=== PATIENT | male | born 1940 | race Caucasian/White ===

== ENCOUNTER 2018-11-06 08:04 | Outpatient (CLI) | payer MEDICARE ==
--- NOTE | 2018-11-06 10:38 | CT ---
CT chest noncontrast low dose screening HISTORY: Current smoker. Dyspnea. Screening. Nicotine dependence. FINDINGS: Lungs are hyperinflated with widespread peripheral interstitial thickening and bullae at th e apices. Occasional scattered calcified granulomata are present and consistent with healed granulomatous disease. Within the far medial aspect of the left upper lobe, a subpleural groundglass 0.4 cm nodule lies immediately deep to the anterior pleura. At the right anterior lung base within the right middle lobe, a noncalcified 0.2 cm solid nodule is present. Calcified pleura is apparent within the left hemithorax. There is an area of subpleural wedge-shaped peripheral parenchymal opacity abutting the area of greatest pleural calcification at the anterior lateral aspect of the left upper lobe. This is likely related to prior trauma or infection. No pleural fluid or pneumothorax. Lack of contrast limits evaluation of the soft tissues. Nonenlarged, nonspecific lymph nodes are scattered about the mediastinum. Calcification in the garland ry arteries and other arterial structures. IMPRESSION: Small noncalcified nodules within the right middle lobe and left upper lobe, as detailed above. Lung RADS category 2. Benign appearance. Continue annual low-dose screening. COPD. Evidence of old posttraumatic or postinfectious abnormality of the left upper lobe. Atherosclerosis.
--- NOTE | 2018-11-06 11:46 | CT ---
CT LUMBAR SPINE WITHOUT CONTRAST: HISTORY: Low back pain and leg pain x 3 months. COMPARISON: None. CORRELATION: Lumbar spine radiograph series 07/04/2018. FINDINGS: Five lumbar-type vertebral bodies. Lumbar spine vertebral body height is maintained. No fracture. No spondylolisthesis or spondylolysis. Visualized lung gold are clear. Limited evaluation of the solid organs due to technique. Grossly, n o solid organ abnormality. Atherosclerosis of a mildly prominent abdominal aorta, incompletely evaluated. 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 No retroperitoneal or paraspinal mass, ly mphadenopathy, or hematoma. Symmetric attenuation of the sternocleidomastoid muscles. Limited evaluation of the contents of the central spinal canal and neural foramen due to technique. T12-L1: No high-grade central canal stenosis or high-grade foraminal narrowing. L1-L2: Minimal generalized disk bulge, ligamentum flavum thickening, and facet hypertrophy. No sign ificant central canal stenosis or neural foraminal narrowing. L2-L3: Generalized disk bulge, ligamentum flavum thickening, and facet hypertrophy result in mild ce ntral canal stenosis. Neural foramina are patent. Minimal vacuum-disk phenomenon is noted. L3-L4: BROAD-BASED disk bulge, ligamentum flavum thickening, and facet hypertrophy result in moderat e central canal stenosis. Mild to moderate bilateral neural foraminal narrowing. L4-L5: Generalized disk bulge with a minimal central disk protrusion, ligamentum flavum thickening r esult in mild central canal stenosis. Mild to moderate right and mild left neural foraminal narrowin g. L5-S1: Minimal central disk protrusion without significant central canal stenosis. Mild bilateral f oraminal narrowing. IMPRESSION: Degenerative change of the lumbar spine as detailed above. There is no high-grade central canal sten osis or high-grade foraminal narrowing. The greatest degree of central canal stenosis appears to be at the L3-L4 level. POS: [facility]
== END 2018-11-06 08:05 | disposition home or self-care (01) ==
LOC: CT 08:04
PROVIDERS: ATTEND Family Medicine
DX: F17.210 Nicotine dependence, cigarettes, uncomplicated (principal); M54.5 Low back pain; J44.9 Chronic obstructive pulmonary disease, unspecified; I70.0 Atherosclerosis of aorta; I25.10 Atherosclerotic heart disease of native coronary artery without angina pectoris; R91.8 Other nonspecific abnormal finding of lung field; M47.816 Spondylosis without myelopathy or radiculopathy, lumbar region; M48.061 Spinal stenosis, lumbar region without neurogenic claudication
CPT/HCPCS: 72131; G0297

== ENCOUNTER 2020-01-15 12:44 | Inpatient (IN) | payer MEDICARE, OTHER ==
[2020-01-15 13:40] LABS: #Basophils 0.1 thou/uL (0.0-0.2); #Eosinphils 0.1 thou/uL (0.0-0.7); #Monocytes 1.2 thou/uL (0.11-0.59); #Neutrophils 6.9 thou/uL (1.40-6.50); %Basophils 1.1 % (0.0-1.0); %Eosinophils 0.9 % (0.0-10.0); %Lymphocytes 10.5 % (21.0-51.0); %Monocytes 12.7 % (0.0-10.0); %Neutrophils 74.8 % (42.0-75.0); Hemoglobin 12.6 g/dL (14.0-18.0); Mean Corpuscular HGB CONC 35.1 g/dL (32.0-36.0); Mean Corpuscular Hemoglobin 33.7 pg (27.0-31.0); Mean Corpuscular Volume 96.2 fL (78.0-98.0); Mean Platelet Volume 7.6 fL (7.4-10.4); Platelet Count 154 thou/uL (130-400); RBC Distribution Width 13.2 % (11.5-14.5); Red Blood Cell (RBC) Count 3.75 mill/uL (4.70-6.10); White Blood Cell (WBC) Count 9.2 thou/uL (4.8-10.8)
--- NOTE | 2020-01-15 13:49 | RAD ---
EXAM: CHEST ONE VIEW HISTORY: Altered mental status. Fall 3 days ago. Hypertensive. COMPARISON: 03/26/2019. FINDINGS: Dual lead right subclavian cardiac pacemaking device remains in place. Postsurgical changes related t o CABG are seen. Cardiac silhouette is magnified by projection. Pulmonary vasculature is within normal limits. Mild chronic interstitial lung changes are again seen. However, there is slightly grea ter interstitial and patchy densities now present at the right lung base as well as in the lingula which could be related to worsening chronic lung changes, but findings are worrisome for pneumonitis. Calcified pleural-based plaques along the left lateral lower chest are again seen. Vascular calcifications are again seen in the thoracic aorta. No other interval change. IMPRESSION: Chronic interstitial lung changes with superimposed areas of pneumonitis versus worsening chronic rancho g changes at the right lung base and in the region of the lingula. Follow-up chest x-ray is recommended.
--- NOTE | 2020-01-15 13:53 | CT ---
EXAM: CT brain without contrast HISTORY: Altered mental status COMPARISON: 10/23/2014 TECHNIQUE: Multiple contiguous axial images were obtained and a CT of the brain without contrast. FINDINGS: There are scattered hypodensities in the subcortical and periventricular white matter consi stent with small vessel ischemic disease. There is no evidence of hydrocephalus, intracranial hemorrhage, or extra-axial fluid collection. The calvarium and overlying soft tissues are unremarkable. The visualized paranasal sinuses and masto id air cells are well aerated. IMPRESSION: No evidence of acute intracranial abnormality
[2020-01-15 14:01] LABS: ALT (SGPT) 16 U/L (8-55); AST (SGOT) 22 U/L (5-34); Albumin 3.2 g/dL (3.4-4.8); Alkaline Phosphatase 91 U/L (40-110); Anion Gap 11 mmol/L (10-20); BUN (Urea Nitrogen) 45 mg/dL (8.4-25.7); Bilirubin, Total 0.7 mg/dL (0.2-1.2); Calc. Creatinine Clearance 0 mL/min (70-130); Carbon Dioxide 24 mmol/L (23-31); Chloride 106 mmol/L (98-107); Estimated GFR-MDRD 42; Globulin 2.9 g/dL (2.4-3.5); Glucose 106 mg/dL (83-110); Potassium 3.8 mmol/L (3.5-5.1); Protein, Total 6.1 g/dL (5.8-8.1); Sodium 137 mmol/L (136-145)
[2020-01-15 14:40] LABS: Bilirubin Negative (Negative); Blood, Urine Small (Negative); Clarity Clear (Clear); Glucose, Urine (Dipstick) Negative (Negative); Ketone, Urine Negative (Negative); Leukocyte Negative (Negative); Nitrite Negative (Negative); Protein, Urine (Dipstick) > or equal to 300 mg/dL (Neg-Trace); Specific Gravity, Urine 1.025 (1.005-1.030); Urobilinogen 0.2 mg/dL (Less than 2)
[2020-01-15 14:48] LABS: Bacteria/HPF None Seen HPF (None Seen); Renal Epithelial 0-3 HPF (None Seen); Squamous Epithelial 0-3 HPF (0-3); Transitional Epithelial 0-3 HPF (None Seen); WBC/HPF 0-3 HPF (0-3)
[2020-01-15] MEDS ORDERED: Azithromycin 500 MG VIAL ONE (15:02)
[2020-01-15] MEDS ORDERED: cefTRIAXone\\ROCEPHIN 1 GM VIAL ONE (15:02)
--- NOTE | 2020-01-15 15:33 | RAD ---
EXAM: 3 views of the right shoulder HISTORY: Shoulder pain COMPARISON: None FINDINGS: There is no evidence of acute fracture or dislocation. No degenerative changes are present. No soft tissue swelling is seen. A pacemaker generator is seen overlying the right thorax. IMPRESSION: No evidence of acute osseous abnormality.
[2020-01-15 15:35] LABS: CKMB 2.7 ng/mL (0-6.6)
--- NOTE | 2020-01-15 15:35 | RAD ---
Exam: Single view of the pelvis HISTORY: Altered mental status with pelvic pain COMPARISON: None FINDINGS: A single view the pelvis shows no evidence of acute fracture or dislocation. No degenerativ e changes seen in either hip. IMPRESSION: No evidence of acute osseous abnormality.
[2020-01-15] MEDS ORDERED: Morphine 4 MG/ML VIAL ONE ×2 (15:47→19:12)
[2020-01-15] MEDS ORDERED: hydrALAZINE 20 MG/ML VIAL ONE (15:48)
[2020-01-15] MEDS ORDERED: Aspirin Chewable 81 MG TAB ONE (15:48)
[2020-01-15] MEDS ORDERED: Ondansetron PF 4 MG/2 ML Vial IVP PRN (16:42)
[2020-01-15] MEDS ORDERED: Senokot S 8.6-50 MG TAB PO PRN (16:42)
[2020-01-15] MEDS ORDERED: Ondansetron ODT 4 MG TAB PO PRN (16:42)
[2020-01-15] MEDS ORDERED: Acetaminophen 325 MG TAB PO PRN (16:42)
[2020-01-15 19:07] LABS: CRP (Inflammatory) 7.59 mg/dL (= or < 0.5); Magnesium 1.8 mg/dL (1.6-2.6)
[2020-01-15 19:12] LABS: Troponin I 0.095 ng/mL (< 0.028)
[2020-01-15 19:27] LABS: Ferritin 167.26 ng/mL (22-322)
[2020-01-15 19:32] LABS: Thyroid Stimulating Hormone 1.7154 uIU/mL (0.35-4.94)
[2020-01-15] MEDS ORDERED: Acetaminophen 325 MG TAB ONE (21:06)
[2020-01-15] MEDS ORDERED: Famotidine/PF 20 mg/2ml Vial ONE (21:06)
[2020-01-15] MEDS ORDERED: Ondansetron PF 4 MG/2 ML Vial ONE (21:06)
[2020-01-15] MEDS ORDERED: Cefepime 1 GM VIAL ONE (21:16)
[2020-01-15] MEDS ORDERED: Acetaminophen 325 MG Suppository ONE ×2 (21:39→21:44)
[2020-01-15] MEDS ORDERED: Lorazepam 2 MG/ML VIAL ONE (22:03)
[2020-01-15 22:34] LABS: Troponin I 0.105 ng/mL (< 0.028)
--- NOTE | 2020-01-16 01:59 | HP ---
PRIMARY CARE PHYSICIAN: Out of [facility], [place]. CHIEF COMPLAINT: Altered mental status. HISTORY OF PRESENT ILLNESS: The HPI was taken from Jaclyn, who is an RN in the [facility] and from the ER record. The patient is a 79-year-old male with a past medical history significant for Alzheimer, CAD, frequent falls, CKD, and hypertension, who presents to the ER for the above complaint. According to [facility] staff, the patient was slightly altered this morning. Nurse reported that the patient was generally weak, had decreased oral intake and was mumbling more than usual. She also reports that the patient had a UA performed last night, which was negative for any acute urinary tract infection. Denies any fever, vomiting or diarrhea. Apparently, the patient also fell three days ago at the [facility]. He did suffer a laceration to his face that required several Steri-Strips. Because of the patient's altered mental status, the nursing staff called EMS. EMS arrived and the patient was found to be hypertensive with a blood pressure of 190/120. He had a blood glucose of 107 and was 95% on room air. He had no focal motor deficits. He was transferred to the ER in [place]. In [place], the patient was found to be afebrile with an elevated blood pressure. He was tachycardic, HR 90s. He was tachypneic with respirations of 25. He was 96% on room air. EKG was a-paced with a first-degree AV block. No ST elevations. Initial troponin 0.090 , CK-MB was 2.7. BNP was 227. He had a lactic acid of 0.8. White blood cell count of 9.2. His BUN was 45 and his creatinine was 1.59. CT of the brain was negative for any acute process. Chest x-ray was positive for some right lower lobe pneumonitis or possible worsening chronic changes of the lungs. X-ray of the pelvis and x-ray of the right shoulder were negative for any acute process and his UA was unremarkable. The patient was given azithromycin and Rocephin IV piggyback. Full-dose aspirin and hydralazine IV push. PAST MEDICAL HISTORY: 1. Alzheimer dementia. 2. Coronary artery disease. 3. Frequent falls. 4. Glaucoma. 5. Macular degeneration. 6. Chronic kidney disease 3. 7. Hypertension. PAST SURGICAL HISTORY: Pacemaker. SOCIAL HISTORY: The patient is a [facility] resident in [place]. He has no history of smoking, alcohol intake, or illicit drug use. He typically ambulates via walker or transfer to a wheelchair. FAMILY HISTORY: 1. Noncontributory to this case. 2. No known drug allergies. HOME MEDICATIONS: 1. Aspirin 81 mg p.o. daily. 2. Depakote sprinkles 125 mg p.o. b.i.d. 3. Latanoprost drops, one drop in each eye daily. 4. Meclizine 12.5 mg p.o. b.i.d. 5. Centrum Silver 1 tablet p.o. daily. REVIEW OF SYSTEMS: All other review of systems are negative unless otherwise stated in the HPI. PHYSICAL EXAMINATION: VITAL SIGNS: Temperature 98.5, blood pressure 156/113, heart rate 98, respirations are 25, and SpO2 96% on room air. CONSTITUTIONAL: The patient's blood pressure is hypertensive. Respiratory rate increased, normal pulse ox. The patient appears comfortable, slightly confused, localizes to painful stimulus. HEENT: Head; the patient has a small laceration to his head from previous fall. Eyes; pupils are equal, round, and reactive to light. Extraocular muscles intact. Sclerae nonicteric. ENT; nares are patent bilaterally. TMs are intact bilaterally. Oropharynx is clear. Uvula midline. Dry mucous membranes. No oral lesions. NECK: Neck is supple. Trachea is midline. No cervical spinal tenderness. Full range of motion. No cervical lymphadenopathy. No JVD. RESPIRATORY: Respirations are even and unlabored. Breath sounds are clear. No wheezes, rhonchi, or rales. CARDIOVASCULAR: S1 and S2 appreciated. No murmurs, rubs, or gallops. ABDOMEN: Soft and nontender. Active bowel sounds. No rebound. No guarding. No rigidity. Negative Rovsing sign. Negative Hidalgo sign. No abdominal bruit auscultated. BACK: Full range of motion. No central spinous tenderness. No CVA tenderness. EXTREMITIES: Upper extremities; decreased range of motion on the right. Sensation intact. Strength intact. Palpable radial pulses. Lower extremities; decreased range of motion. Sensation intact. Strength normal. Palpable pedal pulses. No swelling. NEUROLOGIC: The patient is alert and oriented to person and place, which is baseline per his [facility]. He is able to carry conversation and follows commands. There are no focal deficits. PSYCHIATRIC: Alert and oriented to person and place. No suicidal or homicidal ideation. LABS AND DIAGNOSTICS: Na 137, K 3.8, BUN 45, Creatinine 1.59, glucose 106, WBC 9.2, Hgb 12.6, Hct. 36.1, Plat 154, LA 0.8, Trop 0.090, CKMB 2.7, BNP 227, CT brain negative for any acute process, XR of pelvis and right shoulder negative for any acute fracture, UA unremarkable. IMPRESSION AND PLAN: 1. Pneumonia. We will admit the patient to the medical floor, inpatient status. Expected length of stay, greater than two midnights. WBCs were 9.2. Lactic acid 0.8. Chest x-ray showed chronic interstitial lung changes with superimposed areas of pneumonitis versus worsening chronic lung changes at the right lung base and in the region of the lingula. A followup x-ray is recommended. The patient's vital signs upon examination, slightly tachycardic and tachypneic and maintaining 96% on room air. We will continue azithromycin. We will add cefepime for pseudomonal coverage secondary to [facility] resident. Blood cultures and urine cultures are pending. COVID testing is pending as well. Supplemental support is needed. 2. Altered mental status, likely secondary to #1. The patient did have a recent fall. CT of brain was negative. UA was unremarkable. No focal motor deficits. 3. Suspected COVID. The patient is a [facility] resident. We will place on droplet precautions. We will order acute phase reactants. We will await COVID results. 4. Acute kidney injury, appears mild. Patient presented with a BUN of 45 and a creatinine of 1.59. He does have chronic kidney disease stage 3, which appears to be stable at this time. intermediate did report decreased oral intake. BNP was 227. We will gently IV fluid and resuscitate with 50 mils per hour of normal saline and we will recheck levels in the a.m. 5. Coronary artery disease. The patient does have a permanent pacemaker in place. EKG did show Sinus Arrythmia with first-degree AV block. Initial troponin was 0.090 and CK-MB was 2.7. We will trend troponins and will interrogate pacemaker. 6. Chronic kidney disease 3, stable. 7. Glaucoma. We will restart the patient's home medications when reconciled by nursing. 8. Frequent falls. We will place the patient on fall precautions. We will order PT for evaluation. 9. Hypertension. The patient takes no medications for high blood pressure. Per the [facility] staff, he did present to EMS with a blood pressure of 190/120. In the ER, he presented with 156/113, and was given one dose of hydralazine. We will continue to monitor BP and we will add p.r.n. antihypertensive medications as needed. 10. Consult Physical Therapy. 11. SCDs for deep venous thrombosis prophylaxis. No pharmacoprophylaxis secondary to frequent falls. 12. Pepcid for GI prophylaxis. 13. The patient is a DNR, confirmed his status with GULSHAN Anaya at the [facility]. 14. Discussed the case with Dr. Alonso. Job ID: [id number] MTDD
[2020-01-16] MEDS: Sodium Chloride 0.9% 1,000 ML IV SCH ×2 (03:42→16:55)
[2020-01-16] MEDS: Famotidine/PF 20 mg/2ml Vial SLOW IVP SCH ×2 (03:43→21:40)
[2020-01-16] MEDS: Cefepime 1 GM in Sodium Chloride 0.9% 100 ML IVPB SCH ×3 (03:43→21:39)
[2020-01-16] MEDS: Famotidine 20 MG TAB PO SCH ×2 (03:43→21:52)
[2020-01-16 05:13] LABS: #Basophils 0.1 thou/uL (0.0-0.2); #Eosinphils 0.1 thou/uL (0.0-0.7); #Lymphocytes 1.1 thou/uL (1.20-3.40); #Monocytes 1.2 thou/uL (0.11-0.59); #Neutrophils 7.1 thou/uL (1.40-6.50); %Basophils 0.8 % (0.0-1.0); %Eosinophils 0.6 % (0.0-10.0); %Lymphocytes 11.7 % (21.0-51.0); %Monocytes 12.4 % (0.0-10.0); %Neutrophils 74.5 % (42.0-75.0); Hemoglobin 11.8 g/dL (14.0-18.0); Mean Corpuscular HGB CONC 32.7 g/dL (32.0-36.0); Mean Corpuscular Volume 97.7 fL (78.0-98.0); Mean Platelet Volume 7.8 fL (7.4-10.4); Platelet Count 157 thou/uL (130-400); RBC Distribution Width 13.2 % (11.5-14.5); White Blood Cell (WBC) Count 9.6 thou/uL (4.8-10.8)
[2020-01-16] MEDS: Labetalol HCl 100 MG/20 ML VIAL SLOW IVP PRN ×2 (05:25→13:36)
[2020-01-16 05:34] LABS: Anion Gap 12 mmol/L (10-20); BUN (Urea Nitrogen) 44 mg/dL (8.4-25.7); Calc. Creatinine Clearance 30 mL/min (70-130); Calcium 9.8 mg/dL (7.8-10.44); Carbon Dioxide 23 mmol/L (23-31); Chloride 107 mmol/L (98-107); Estimated GFR-MDRD 39; Glucose 82 mg/dL (83-110); Potassium 3.9 mmol/L (3.5-5.1); Sodium 138 mmol/L (136-145)
[2020-01-16] MEDS: Acetaminophen 650 MG Suppository PR PRN (05:48)
[2020-01-16 07:04] VITALS: BMI 18.6
[2020-01-16] MEDS: Aspirin 81 mg Enteric Coated Tablet PO SCH (10:39)
[2020-01-16 12:26] LABS: SARS-CoV-2 MS2 Positive; SARS-CoV-2 N Gene Negative; SARS-CoV-2 S Gene Negative; SARS-CoV-2 orf1ab Negative
--- NOTE | 2020-01-16 12:57 | PDOC.HOSPP ---
- Subjective Encounter Date: 01/16/20 Encounter Time: 10:20 Subjective: pt seen this am, he is not oriented to make any conversation, clothes are disarraigned. sats are good. talk to RN. - Objective Vital Signs & Weight: Vital Signs (12 hours) Temp Pulse Resp BP BP BP Pulse Ox 01/16/20 07:40 99.5 F 115 H 20 174/85 H 100 01/16/20 05:25 86 187/79 H 01/16/20 04:48 99.4 F 86 22 H 187/79 H 96 01/16/20 01:03 99.6 F 124 H 20 149/79 H 99 Weight Admit Weight 133 lb 4 oz Weight 133 lb 4 oz Result Diagrams: 01/16/20 04:57 01/16/20 04:57 Hospitalist ROS - Medication Medications: Active Medications Generic Name Dose Route Start Last Admin Trade Name Freq PRN Reason Stop Dose Admin Acetaminophen 650 mg 01/16/20 05:43 01/16/20 05:48 Tylenol ME 650 mg Q4H PRN Administration Fever/Mild Pain Aspirin 81 mg 01/16/20 09:00 01/16/20 10:39 Ecotrin PO Not Given DAILY DARIEN Famotidine 20 mg 01/15/20 21:00 01/16/20 03:43 Pepcid SLOW IVP Not Given QPM DARIEN Famotidine 20 mg 01/15/20 21:00 01/16/20 03:43 Pepcid PO Not Given QPM DARIEN Sodium Chloride 1,000 mls @ 50 mls/hr 01/15/20 16:45 01/16/20 03:42 Normal Saline 0.9% IV Not Given .Q20H DARIEN Cefepime HCl 1 gm/ Sodium 100 mls @ 200 mls/hr 01/15/20 21:00 01/16/20 07:32 Chloride IVPB 100 mls Q12HR DARIEN Administration Labetalol HCl 10 mg 01/15/20 16:52 01/16/20 05:25 Normodyne SLOW IVP 10 mg Q4H PRN Administration Systolic BP > 180 - Exam General Appearance: ill appearing Eye: PERRL ENT: normocephalic atraumatic Neck: supple Heart: RRR Respiratory: CTAB Neurological: no focal deficits Psychiatric: not oriented Hosp A/P - Plan Fall -- cT head negative Covid -- neg. LLL PNA vs.. atelectasis -- afebrile, no high wbcs.--favour atlecatsis -- off CTX and cw zithro to cover for aspiration in AMS pt Alzhimers dementia -supportive care DNAR
[2020-01-16] MEDS ORDERED: cefTRIAXone\\ROCEPHIN 1 GM in Sodium Chloride 0.9% 100 ML IVPB SCH (16:00)
[2020-01-16] MEDS ORDERED: Lorazepam 2 MG/ML VIAL SLOW IVP SCH (17:00)
[2020-01-16] MEDS: hydrALAZINE 20 MG/ML VIAL SLOW IVP SCH ×2 (17:07→21:40)
--- NOTE | 2020-01-16 17:44 | ULT ---
US Renal Bilateral STANDARD History: Acute kidney injury Comparison: None. Findings: Real-time grayscale and color evaluation of the kidneys and urinary bladder was performed. The urinary bladder is not well interrogated. Right kidney measures 8.8 x 4.7 x 4.2 cm and the left k idney measures 7.8 x 4.7 x 3.5 cm. No renal mass, hydronephrosis or abnormal calcifications. Impression: No evidence for obstructive uropathy.
[2020-01-16] MEDS ORDERED: Prevnar 13-Val Conj/PF 0.5 ML SYRINGE IM ONE (21:00)
[2020-01-16] MEDS: Azithromycin 500 MG in Sodium Chloride 0.9% 250 ML 250 ML IVPB SCH (21:39)
[2020-01-17] MEDS: hydrALAZINE 20 MG/ML VIAL SLOW IVP SCH ×3 (06:05→22:35)
[2020-01-17 06:08] LABS: Troponin I 0.478 ng/mL (< 0.028)
[2020-01-17] MEDS: Cefepime 1 GM in Sodium Chloride 0.9% 100 ML IVPB SCH (09:41)
[2020-01-17] MEDS: Labetalol HCl 100 MG/20 ML VIAL SLOW IVP PRN (09:42)
[2020-01-17] MEDS: Aspirin 81 mg Enteric Coated Tablet PO SCH (09:42)
--- NOTE | 2020-01-17 13:31 | PDOC.HOSPP ---
- Subjective Encounter Date: 01/17/20 Encounter Time: 11:20 Subjective: pt seen this morning, Physical. -therapy nearby. pt barely oriented. BP quite high. NPO w.. aspiration risk - Objective Vital Signs & Weight: Vital Signs (12 hours) Temp Pulse Pulse Resp BP BP BP 01/17/20 11:48 97.8 F 108 H 20 162/101 H 01/17/20 10:38 77 209/86 H 01/17/20 07:50 98.4 F 117 H 20 200/91 H 01/17/20 06:05 102 H 01/17/20 04:00 172/68 H 01/17/20 03:30 98.9 F 102 H 20 Pulse Ox 01/17/20 11:48 93 L 01/17/20 10:38 01/17/20 07:50 94 L 01/17/20 06:05 01/17/20 04:00 01/17/20 03:30 92 L Weight Admit Weight 133 lb 4 oz Weight 133 lb 4 oz Result Diagrams: 01/16/20 04:57 01/16/20 04:57 Hospitalist ROS - Medication Medications: Active Medications Generic Name Dose Route Start Last Admin Trade Name Freq PRN Reason Stop Dose Admin Acetaminophen 650 mg 01/16/20 05:43 01/16/20 05:48 Tylenol NV 650 mg Q4H PRN Administration Fever/Mild Pain Aspirin 81 mg 01/16/20 09:00 01/17/20 09:42 Ecotrin PO Not Given DAILY DARIEN Famotidine 20 mg 01/15/20 21:00 01/16/20 21:40 Pepcid SLOW IVP 20 mg QPM DARIEN Administration Famotidine 20 mg 01/15/20 21:00 01/16/20 21:52 Pepcid PO Not Given QPM DARIEN Hydralazine HCl 20 mg 01/16/20 14:00 01/17/20 06:05 Apresoline SLOW IVP 20 mg Q8HR DARIEN Administration Sodium Chloride 1,000 mls @ 50 mls/hr 01/15/20 16:45 01/16/20 16:55 Normal Saline 0.9% IV 1,000 mls .Q20H DARIEN Administration Azithromycin 500 mg/ Sodium 250 mls @ 250 mls/hr 01/16/20 21:00 01/16/20 21: 39 Chloride IVPB 250 mls 2100 DARIEN Administration Cefepime HCl 1 gm/ Sodium 100 mls @ 200 mls/hr 01/15/20 21:00 01/17/20 09:41 Chloride IVPB 100 mls Q12HR DARIEN Administration Labetalol HCl 10 mg 01/15/20 16:52 01/17/20 09:42 Normodyne SLOW IVP 10 mg Q4H PRN Administration Systolic BP > 180 - Exam General Appearance: ill appearing ENT: normocephalic atraumatic Neck: supple Heart: RRR Respiratory: CTAB, normal chest expansion Gastrointestinal: soft, normal bowel sounds Neurological: no focal deficits Psychiatric: not oriented Hosp A/P - Plan Fall -- cT head negative Covid -- neg. LLL PNA vs.. atelectasis -- afebrile, no high wbcs.--favour atlecatsis -- off CTX and cw zithro to cover for aspiration in AMS pt Alzhimers dementia -supportive care dysphagia - pt is high risk for aspiration -- i dont think he would be more active to avoid this risk -we have to define goals of care, so he can resume 'pleasure food, taking aspirn...risk] - have to talk to family -- PEG also not recommended in my opinion -will request palliative to help us with coordinating w.. family -- so pt can start pleasure food, whenever he is alert and awake -maintenance fluid is running -- reduce the rate as BP high HTN urgency - pt NPO so - scheduled hydralazine IV. DNAR
[2020-01-17] MEDS: Sodium Chloride 0.9% 1,000 ML IV SCH (17:03)
[2020-01-17] MEDS ORDERED: Lorazepam 2 MG/ML VIAL SLOW IVP SCH (22:00)
[2020-01-17] MEDS: Azithromycin 500 MG in Sodium Chloride 0.9% 250 ML 250 ML IVPB SCH (22:34)
[2020-01-18 05:18] LABS: Anion Gap 13 mmol/L (10-20); BUN (Urea Nitrogen) 56 mg/dL (8.4-25.7); Calc. Creatinine Clearance 30 mL/min (70-130); Calcium 10.5 mg/dL (7.8-10.44); Carbon Dioxide 24 mmol/L (23-31); Chloride 111 mmol/L (98-107); Estimated GFR-MDRD 39; Glucose 102 mg/dL (83-110); Potassium 3.6 mmol/L (3.5-5.1); Sodium 144 mmol/L (136-145)
[2020-01-18] MEDS: hydrALAZINE 20 MG/ML VIAL SLOW IVP SCH ×4 (06:37→20:22)
--- NOTE | 2020-01-18 11:50 | PDOC.HOSPP ---
- Subjective Encounter Date: 01/18/20 Encounter Time: 09:40 Subjective: pt is getting cleaned up; no skin ulcers. talk to the dtr y'day over the phone , agreeable for hospice. - Objective Vital Signs & Weight: Vital Signs (12 hours) Temp Pulse Resp BP BP Pulse Ox 01/18/20 07:50 98 F 106 H 24 H 155/105 H 92 L 01/18/20 06:37 108 H 198/92 H 01/18/20 02:53 95 Weight Admit Weight 133 lb 4 oz Weight 133 lb 4 oz Result Diagrams: 01/16/20 04:57 01/18/20 04:40 Hospitalist ROS - Medication Medications: Active Medications Generic Name Dose Route Start Last Admin Trade Name Freq PRN Reason Stop Dose Admin Acetaminophen 650 mg 01/16/20 05:43 01/16/20 05:48 Tylenol ME 650 mg Q4H PRN Administration Fever/Mild Pain Hydralazine HCl 20 mg 01/18/20 09:00 01/18/20 09:42 Apresoline SLOW IVP 20 mg 0300,0900,1500,2100 DARIEN Administration Azithromycin 500 mg/ Sodium 250 mls @ 250 mls/hr 01/16/20 21:00 01/17/20 22: 34 Chloride IVPB 250 mls 2100 DARIEN Administration Labetalol HCl 10 mg 01/15/20 16:52 01/17/20 09:42 Normodyne SLOW IVP 10 mg Q4H PRN Administration Systolic BP > 180 - Exam General Appearance: NAD, awake alert, ill appearing Eye: PERRL ENT: normocephalic atraumatic Neck: supple Heart: RRR Respiratory: CTAB Gastrointestinal: soft, normal bowel sounds Neurological: no focal deficits Psychiatric: not oriented Hosp A/P - Plan Fall -- CT head negative Covid -- neg. LLL PNA vs.. atelectasis -- afebrile, no high wbcs.--favour atlecatsis -- off CTX and cw zithro to cover for aspiration in AMS pt Alzhimers dementia -supportive care Dysphagia - pt is high risk for aspiration -- i dont think he would be more active to avoid this risk -we have to define goals of care, so he can resume 'pleasure food, taking aspirn...risk] - have to talk to family -- PEG also not recommended in my opinion -will request palliative to help us with coordinating w.. family -- so pt can start pleasure food, whenever he is alert and awake -maintenance fluid is running -- reduce the rate as BP high HTN urgency - pt NPO so - scheduled hydralazine IV. No labs and wean off most meds - will dc abx and adopt comfort care meds, once hospice on board. -ativan prn for now. talk to dtr farooq at [phone] on . hospice consult placed -- pleasure food. --pureed diet w.. nectar. DNAR
[2020-01-18] MEDS ORDERED: KCL IV SCH (12:00)
[2020-01-18] MEDS ORDERED: NS IV SCH (12:00)
[2020-01-18] MEDS ORDERED: NS 0.9% w/ 40 MEQ KCL 1,000 ML IV SCH (12:15)
[2020-01-18] MEDS ORDERED: Nitroglycerin 0.4 MG TAB (25 Tab Bottle) SL PRN (12:56)
[2020-01-18] MEDS: Morphine 2 MG/ML VIAL SLOW IVP PRN ×2 (13:39→20:22)
[2020-01-18] MEDS: Azithromycin 500 MG in Sodium Chloride 0.9% 250 ML 250 ML IVPB SCH (20:23)
[2020-01-18] MEDS: Labetalol HCl 100 MG/20 ML VIAL SLOW IVP PRN (22:07)
[2020-01-18] MEDS ORDERED: Lorazepam 2 MG/ML VIAL SLOW IVP PRN (23:19)
[2020-01-18] MEDS: hydrALAZINE 20 MG/ML VIAL SLOW IVP PRN (23:54)
[2020-01-19] MEDS: Acetaminophen 650 MG Suppository PR PRN (00:12)
[2020-01-19] MEDS: Morphine 2 MG/ML VIAL SLOW IVP PRN (03:17)
[2020-01-19] MEDS: hydrALAZINE 20 MG/ML VIAL SLOW IVP SCH ×4 (03:18→21:22)
[2020-01-19] MEDS: Labetalol HCl 100 MG/20 ML VIAL SLOW IVP PRN ×2 (04:36→12:45)
[2020-01-19] MEDS ORDERED: Morphine 4 MG/ML VIAL SLOW IVP PRN (05:11)
[2020-01-19] MEDS: Morphine 4 MG/ML VIAL SLOW IVP PRN ×3 (05:46→23:03)
[2020-01-19] MEDS: hydrALAZINE 20 MG/ML VIAL SLOW IVP PRN (05:47)
--- NOTE | 2020-01-19 11:01 | PDOC.HOSPP ---
- Subjective Encounter Date: 01/19/20 Encounter Time: 10:45 Subjective: f/u for suspected RLL PNA and potential aspiration on current Zithromax. Awaiting Palliative care consult and likely transition to hospice care. - Objective Vital Signs & Weight: Vital Signs (12 hours) Temp Pulse Resp BP BP Pulse Ox 01/19/20 09:08 104 H 200/90 H 01/19/20 07:25 97.9 F 98 18 95 01/19/20 06:10 170/88 H 01/19/20 05:47 92 210/90 H 01/19/20 04:36 106 H 190/100 H 01/19/20 03:50 94 L 01/19/20 03:18 104 H 210/100 H 01/19/20 03:08 97 F L 24 H 210/100 H 98 01/19/20 00:40 131/74 01/19/20 00:02 99.7 F H 104 H 26 H 211/104 H 97 01/18/20 23:10 205/110 H Weight Admit Weight 133 lb 4 oz Weight 133 lb 4 oz I&O: 01/18/20 01/19/20 01/20/20 06:59 06:59 06:59 Intake Total 1000 Balance 1000 Result Diagrams: 01/16/20 04:57 01/20/20 04:28 Additional Labs: Microbiology 01/15/20 14:07 Urine Straight Catheter Urine Culture - Final NO GROWTH AT 48 HOURS 01/15/20 14:01 Venous blood - Right Hand Blood Culture - Preliminary NO GROWTH AT 48 HOURS 01/15/20 14:01 Venous blood - Left Arm Blood Culture - Preliminary NO GROWTH AT 48 HOURS Laboratory Tests 01/15/20 01/15/20 01/15/20 13:29 13:32 13:32 Creatinine 1.59 H Ferritin Troponin I 0.090 H B-Natriuretic Peptide 227.4 H TSH 3rd Generation COVID-19 PCR 01/15/20 01/15/20 01/15/20 15:55 18:36 18:36 Creatinine Ferritin 167.26 Troponin I 0.095 H B-Natriuretic Peptide TSH 3rd Generation 1.7154 COVID-19 PCR Not Detected 01/15/20 01/16/20 01/17/20 22:00 04:57 05:15 Creatinine 1.69 H Ferritin Troponin I 0.105 H 0.478 H* B-Natriuretic Peptide TSH 3rd Generation COVID-19 PCR EKG Reviewed by me: Yes (Tele - SR with PAC's) Hospitalist ROS - Medication Medications: Active Medications Generic Name Dose Route Start Last Admin Trade Name Freq PRN Reason Stop Dose Admin Acetaminophen 650 mg 01/16/20 05:43 01/19/20 00:12 Tylenol IN 650 mg Q4H PRN Administration Fever/Mild Pain Hydralazine HCl 10 mg 01/15/20 16:52 01/19/20 05:47 Apresoline SLOW IVP 10 mg Q4H PRN Administration SBP > 180 or DBP > 105 Hydralazine HCl 20 mg 01/18/20 09:00 01/19/20 09:08 Apresoline SLOW IVP 20 mg 0300,0900,1500,2100 DARIEN Administration Azithromycin 500 mg/ Sodium 250 mls @ 250 mls/hr 01/16/20 21:00 01/18/20 20: 23 Chloride IVPB 250 mls 2100 DARIEN Administration Labetalol HCl 10 mg 01/15/20 16:52 01/19/20 04:36 Normodyne SLOW IVP 10 mg Q4H PRN Administration Systolic BP > 180 Lorazepam 0.5 mg 01/18/20 23:19 01/18/20 23:54 Ativan SLOW IVP 0.5 mg Q6H PRN Administration Anxiety/Agitation Morphine Sulfate 4 mg 01/19/20 05:12 01/19/20 05:46 Morphine SLOW IVP 4 mg Q4H PRN Administration Chest Pain - Exam General Appearance: ill appearing General - other findings: agitated Eye: PERRL, anicteric sclera ENT: normocephalic atraumatic, no oropharyngeal lesions, dry oral mucosa Neck: supple, symmetric, no JVD, no thyromegaly, no lymphadenopathy Heart: RRR, no gallops, no rubs, normal peripheral pulses Heart - other findings: S1, S2 Respiratory: tachypneic Respiratory - other findings: scattered coarse sounds Gastrointestinal: soft, non-tender, non-distended, normal bowel sounds, no palpable masses Extremities: no cyanosis Skin: normal turgor Neurological - other findings: not following commands, spontaneous limb movement Musculoskeletal: generalized weakness, diffuse muscle atrophy Psychiatric: not oriented, somnolent, lethargic Hosp A/P (1) Bacterial pneumonia Code(s): J15.9 - UNSPECIFIED BACTERIAL PNEUMONIA Status: Acute Plan: Suspected Gm + cocci, continue Zithromax, ? aspiration component given dysphagia , supportive mgmt (2) Alzheimer's dementia Code(s): G30.9 - ALZHEIMER'S DISEASE, UNSPECIFIED; F02.80 - DEMENTIA IN OTH DISEASES CLASSD ELSWHR W/O BEHAVRL DISTURB Status: Chronic Plan: Advanced dementia, likely end-stage process (3) CKD (chronic kidney disease), stage III Code(s): N18.3 - CHRONIC KIDNEY DISEASE, STAGE 3 (MODERATE) Status: Chronic Plan: Avoid nephrotoxic meds and limit contrast exposure, D5 1/2 NS @ 50ml/h (4) Dysphagia Code(s): R13.10 - DYSPHAGIA, UNSPECIFIED Status: Chronic Qualifiers: Dysphagia type: oropharyngeal phase Qualified Code(s): R13.12 - Dysphagia, oropharyngeal phase Plan: [employer] following, ice chips and crushed meds, likely end-stage process, no recommendation for PEG (5) HTN (hypertension) Code(s): I10 - ESSENTIAL (PRIMARY) HYPERTENSION Status: Chronic Qualifiers: Hypertension type: essential hypertension Qualified Code(s): I10 - Essential (primary) hypertension Plan: Labile, likely due to agitation and dementia, add Clonidine patch, PRN Hydralazine/Labetalol (6) Dehydration Code(s): E86.0 - DEHYDRATION Status: Acute Plan: Add D5 1/2 NS @ 100ml/h - Plan continue antibiotics, PT/OT, healthcare social worker, speech therapy, DVT proph w/SCDs Consults: Palliative Care Continue supportive mgmt Add D5 1/2 NS @ 100ml/h Palliative/Hospice consult pending Continue Zithromax Continue Ativan/Morphine sulfate for agitation Code Status: DNAR AM lab: BMP
[2020-01-19] MEDS ORDERED: cloNIDine 0.2mg/24 Hour PATCH TD SCH (12:00)
[2020-01-19] MEDS: Dextrose 5 %-0.45 % NaCl 1,000 ML IV SCH (12:25)
[2020-01-19] MEDS ORDERED: Sodium Chloride 0.9% 500 ML IVPB SCH (18:45)
[2020-01-19] MEDS ORDERED: Diltiazem 125 MG in Sodium Chloride 0.9% 100 ML IVPB SCH ×2 (20:15→22:30)
[2020-01-19] MEDS: Azithromycin 500 MG in Sodium Chloride 0.9% 250 ML 250 ML IVPB SCH (21:12)
[2020-01-20] MEDS: Dextrose 5 %-0.45 % NaCl 1,000 ML IV SCH ×2 (04:42→04:43)
[2020-01-20] MEDS: hydrALAZINE 20 MG/ML VIAL SLOW IVP SCH ×2 (04:43→10:46)
[2020-01-20 05:04] LABS: Anion Gap 12 mmol/L (10-20); BUN (Urea Nitrogen) 62 mg/dL (8.4-25.7); Calc. Creatinine Clearance 29 mL/min (70-130); Calcium 9.8 mg/dL (7.8-10.44); Carbon Dioxide 21 mmol/L (23-31); Chloride 119 mmol/L (98-107); Estimated GFR-MDRD 38; Glucose 167 mg/dL (83-110); Potassium 3.5 mmol/L (3.5-5.1); Sodium 148 mmol/L (136-145)
[2020-01-20] MEDS ORDERED: Dextrose 5% in Water 1,000 ML IV SCH (07:45)
--- NOTE | 2020-01-20 10:40 | PDOC.HOSPP ---
- Subjective Encounter Date: 01/20/20 Encounter Time: 10:35 Subjective: f/u for RLL PNA with aspiration on current Zithromax. Awaiting hospice decision with family. Developed A-fib/flutter RVR last pm and started on Cardizem gtt. - Objective Vital Signs & Weight: Vital Signs (12 hours) Temp Pulse Resp BP BP Pulse Ox 01/20/20 07:32 97.7 F 100 20 164/92 H 95 01/20/20 04:43 92 01/20/20 03:10 98.9 F 92 18 174/81 H 94 L 01/20/20 00:11 94 L 01/19/20 23:26 99.1 F 133 H 16 170/92 H 94 L Weight Admit Weight 133 lb 4 oz Weight 133 lb 4 oz I&O: 01/19/20 01/20/20 01/21/20 06:59 06:59 06:59 Intake Total 1000 Balance 1000 Result Diagrams: 01/16/20 04:57 01/20/20 04:28 Additional Labs: Microbiology 01/15/20 14:07 Urine Straight Catheter Urine Culture - Final NO GROWTH AT 48 HOURS 01/15/20 14:01 Venous blood - Right Hand Blood Culture - Preliminary NO GROWTH AT 48 HOURS 01/15/20 14:01 Venous blood - Left Arm Blood Culture - Preliminary NO GROWTH AT 48 HOURS Laboratory Tests 01/15/20 01/15/20 01/15/20 13:29 13:32 13:32 Sodium Chloride BUN Creatinine 1.59 H Calcium Ferritin Troponin I 0.090 H B-Natriuretic Peptide 227.4 H TSH 3rd Generation COVID-19 PCR 01/15/20 01/15/20 01/15/20 15:55 18:36 18:36 Sodium Chloride BUN Creatinine Calcium Ferritin 167.26 Troponin I 0.095 H B-Natriuretic Peptide TSH 3rd Generation 1.7154 COVID-19 PCR Not Detected 01/15/20 01/16/20 01/17/20 22:00 04:57 05:15 Sodium Chloride BUN Creatinine 1.69 H Calcium Ferritin Troponin I 0.105 H 0.478 H* B-Natriuretic Peptide TSH 3rd Generation COVID-19 PCR 01/18/20 04:40 Sodium 144 Chloride 111 H BUN 56 H Creatinine 1.69 H Calcium 10.5 H Ferritin Troponin I B-Natriuretic Peptide TSH 3rd Generation COVID-19 PCR EKG Reviewed by me: Yes (Tele - V-pacing, A-fib in low 100's) Hospitalist ROS - Medication Medications: Active Medications Generic Name Dose Route Start Last Admin Trade Name Freq PRN Reason Stop Dose Admin Acetaminophen 650 mg 01/16/20 05:43 01/19/20 00:12 Tylenol WI 650 mg Q4H PRN Administration Fever/Mild Pain Clonidine 0.2 mg 01/19/20 12:00 01/19/20 12:26 [id number] TD 0.2 mg Q7D DARIEN Administration Hydralazine HCl 10 mg 01/15/20 16:52 01/19/20 05:47 Apresoline SLOW IVP 10 mg Q4H PRN Administration SBP > 180 or DBP > 105 Hydralazine HCl 20 mg 01/18/20 09:00 01/20/20 04:43 Apresoline SLOW IVP Not Given 0300,0900,1500,2100 DARIEN Azithromycin 500 mg/ Sodium 250 mls @ 250 mls/hr 01/16/20 21:00 01/19/20 21: 12 Chloride IVPB 250 mls 2100 DARIEN Administration Labetalol HCl 10 mg 01/15/20 16:52 01/19/20 12:45 Normodyne SLOW IVP 10 mg Q4H PRN Administration Systolic BP > 180 Lorazepam 0.5 mg 01/18/20 23:19 01/18/20 23:54 Ativan SLOW IVP 0.5 mg Q6H PRN Administration Anxiety/Agitation Morphine Sulfate 4 mg 01/19/20 05:12 01/19/20 23:03 Morphine SLOW IVP 4 mg Q4H PRN Administration Chest Pain Sodium Chloride 10 ml 01/15/20 16:42 01/19/20 23:06 Flush - Normal Saline IVF 10 ml Q12HR PRN Administration Saline Flush - Exam General Appearance: ill appearing General - other findings: agitated, opens eyes to name Eye: PERRL, anicteric sclera ENT: normocephalic atraumatic, no oropharyngeal lesions Neck: supple, symmetric, no JVD, no thyromegaly, no lymphadenopathy Heart: no murmur, no rubs, normal peripheral pulses, irregular Heart - other findings: S1, S2 Respiratory: tachypneic Respiratory - other findings: scattered coarse sounds Gastrointestinal: soft, non-tender, non-distended, normal bowel sounds, no palpable masses Extremities: no cyanosis, no clubbing, no edema Skin: normal turgor Neurological: no new deficit Musculoskeletal: generalized weakness Psychiatric: oriented to person, somnolent Hosp A/P (1) Atrial fibrillation with RVR Code(s): I48.91 - UNSPECIFIED ATRIAL FIBRILLATION Status: Acute Plan: Rate improved on Cardizem gtt, continue rate-control strategy, V-pacing noted on shearing supervisor (2) Bacterial pneumonia Code(s): J15.9 - UNSPECIFIED BACTERIAL PNEUMONIA Status: Acute Plan: continue pulmonary support, Zithromax (3) Alzheimer's dementia Code(s): G30.9 - ALZHEIMER'S DISEASE, UNSPECIFIED; F02.80 - DEMENTIA IN OTH DISEASES CLASSD ELSWHR W/O BEHAVRL DISTURB Status: Chronic Plan: Advanced and severe, supportive mgmt (4) CKD (chronic kidney disease), stage III Code(s): N18.3 - CHRONIC KIDNEY DISEASE, STAGE 3 (MODERATE) Status: Chronic (5) Dysphagia Code(s): R13.10 - DYSPHAGIA, UNSPECIFIED Status: Chronic Qualifiers: Dysphagia type: oropharyngeal phase Qualified Code(s): R13.12 - Dysphagia, oropharyngeal phase (6) HTN (hypertension) Code(s): I10 - ESSENTIAL (PRIMARY) HYPERTENSION Status: Chronic Qualifiers: Hypertension type: essential hypertension Qualified Code(s): I10 - Essential (primary) hypertension (7) Dehydration Code(s): E86.0 - DEHYDRATION Status: Acute Plan: Continue D5W IV - Plan continue antibiotics, PT/OT, social service agency director, speech therapy, respiratory therapy, DVT proph w/SCDs Consults: Hospice, Palliative Care Continue supportive mgmt D5W @ 100ml/h Palliative/Hospice consult pending Continue Zithromax Continue Ativan/Morphine sulfate for agitation Code Status: DNAR AM lab: BMP
[2020-01-20 11:23] VITALS: BP 173/81; TEMP 98
[2020-01-20] MEDS: Morphine 4 MG/ML VIAL SLOW IVP PRN (12:40)
--- NOTE | 2020-01-21 03:28 | DIS ---
DATE OF ADMISSION: 01/15/2020 DATE OF DISCHARGE: 01/20/2020 DISCHARGE DIAGNOSES: 1. Bacterial pneumonia, suspected gram-positive cocci and oral pathogens. 2. Atrial fibrillation with rapid ventricular response. 3. Advanced Alzheimer dementia. 4. Chronic kidney disease stage 3. 5. Chronic dysphagia. 6. Hypertension. 7. Dehydration. 8. Acute metabolic encephalopathy, multifactorial. CONSULTATIONS: [facility]. PERTINENT LABORATORY AND X-RAY FINDINGS: Creatinine ranged between 1.59 to 1.74. Estimated GFR ranged between 38 to 42. Lactic acid level 0.8. Magnesium level 2.0. Troponin I ranged between 0.090 to 0.478. CRP 7.59. TSH 1.72. Blood cultures x2 dated 01/15/2020 showed no growth at 5 days. Urine culture dated 01/15/2020 showed no growth at 48 hours. Portable chest x-ray dated 01/15/2020 showed chronic interstitial lung changes with questionable pneumonitis in the right lung base and region of the lingula. CT of the brain without contrast dated 01/15/2020 showed no acute intracranial process. Pelvic radiographs dated 01/15/2020 showed no acute process. Three views of the right shoulder dated 01/15/2020 showed no acute process. Renal ultrasound dated 01/16/2020 showed no obstructive uropathy. HOSPITAL COURSE: The patient initially admitted after presenting with altered mental status in the context of advanced Alzheimer dementia. Chest imaging at the time of admission showed right lower lobe infiltrate, concerning for pneumonia and questionable aspect of aspiration. The patient was placed on broad-spectrum IV antibiotic therapy and given general pulmonary supportive management. The patient was also ruled out for COVID-19 with PCR results negative 01/15/2020. The patient did receive IV cefepime and oxygen support. CT imaging of the brain was unremarkable and UA did not show any source of infection. The patient continued with IV fluid hydration and clinically stabilized in regard to respiratory status. Due to the patient's multiple comorbid conditions and advanced Alzheimer dementia, the family decided to pursue comfort care measures and discussed hospice options. The patient will transition to hospice care with [facility] on 01/20/2020. I have examined the patient at the time of discharge with coordination of care with [facility] ongoing. DISCHARGE MEDICATIONS: 1. Enteric-coated aspirin 81 mg p.o. daily. 2. Lipitor 20 mg p.o. at bedtime. 3. Xalatan 0.005% one drop to each eye daily. FOLLOWUP: The patient will transition to inpatient hospice with [facility], 01/20/2020. CONDITION AT THE TIME OF DISCHARGE: Guarded. ACTIVITY: Bed-bound status. DIET: N.p.o. status. CODE STATUS: Do not attempt resuscitation. DISPOSITION: Transfer to [facility] inpatient 01/20/2020. Job ID: [id number] MTDD
--- NOTE | 2020-01-22 04:32 | PQF ---
NADRE HE CHARLES DO [id number] CLINICAL DOCUMENTATION CLARIFICATION FORM: POST DISCHARGE Addendum to original discharge summary date: ____ Late entry note date: __ DATE: 01/22/2020 ATTN: Elier Lee Please exercise your independent, professional judgment in responding to the clarification form. Clinical indicators are provided on the bottom of this form for your review Please check appropriate box(es): [ ] Sepsis due to Pneumonia [ ] Severe sepsis due to Pneumonia [ ] Septic Shock due to Pneumonia [ x ] Localized infection without sepsis [ ] SIRS due to non-infectious process (please specify etiology) [ ] with organ dysfunction [ ] without organ dysfunction [ ] Other diagnosis [ ] Unable to determine In addition, please specify: Present on Admission (POA): [ x ] Yes [ ] No [ ] Unable to determine For continuity of documentation, please document condition throughout progress notes and discharge summary. Thank You. CLINICAL INDICATORS - SIGNS / SYMPTOMS / LABS / RESULTS AND LOCATION IN MR Laboratory 01/14 WBC 9.2, plt count 154, Neutrophils 74.8%, Lactic Acid 0.8 Blood culture 01/14 No growth in 5 days Vital signs 01/14 BP 149/84, Pulse 105, Resp 28, Temp 98.9 Chest X-ray 01/14 Impression : Positive for some RLL pneumonitis or possible worsening chronic changes of the lungs H&P p1 01/14 Dr Silver According to nursing staff, pt was slightly altered this morning H&P p1 01/14 Dr Silver found to be afebrile with elevate BP but tachycardic and he was tachypneic H&P p3 01/14 Dr Silver Pneumonia H&P p1 01/14 Dr Silver Altered mental status H&P p1 01/14 Dr Silver Acute kidney injury Discharge summary 01/19 Dr He Bacterial pneumonia suspected gram-positive cocci and oral pathogens Discharge summary 01/19 Dr He Acute Metabolic Encephalopathy multifactorial RISK FACTORS / RESULTS AND LOCATION IN H&P p1 01/14 79 year-old Male H&P p1 01/14 Alzheimer dementia H&P p1 01/14 CAD H&P p1 01/14 CKD H&P p1 01/14 HTN H&P p3 01/14- Pneumonia TREATMENTS / RESULTS AND LOCATION IN SEP 20 IV Maxipime 1 gm SEP 20 IV Ceftriaxone Sodium 1gm SEP 20 IV Azithromycin 500 mg SEP 20 IVF NS 1L Blood culture 01/14 Ordered Chest X-ray 01/14 Ordered Respiratory Panel 01/14 Oxygen 2L (This form is maintained as a part of the permanent medical record) 2014 [employer] All Rights Reserved [email or web address]
== END 2020-01-20 15:04 | disposition hospice, inpatient (51) | DRG 177 ==
LOC: ERS 12:44 → ERHOLD 16:17 → 2SW 17:35 → 2SE 01-16 15:55
PROVIDERS: ADMIT Internal Medicine; ATTEND Internal Medicine
PROC: 8E0ZXY6 Isolation (ICD-10-PCS; principal; 2020-01-15)
DX: J69.0 Pneumonitis due to inhalation of food and vomit (principal); G93.41 Metabolic encephalopathy; N17.9 Acute kidney failure, unspecified; J15.9 Unspecified bacterial pneumonia; Z66 Do not resuscitate; Z51.5 Encounter for palliative care; Z20.828 Contact with and (suspected) exposure to other viral communicable diseases; I48.91 Unspecified atrial fibrillation; G30.9 Alzheimer's disease, unspecified; F02.80 Dementia in other diseases classified elsewhere, unspecified severity, without behavioral disturbance, psychotic disturbance, mood disturbance, and anxiety; N18.3 Chronic kidney disease, stage 3 (moderate); E86.0 Dehydration; I12.9 Hypertensive chronic kidney disease with stage 1 through stage 4 chronic kidney disease, or unspecified chronic kidney disease; F39 Unspecified mood [affective] disorder; I25.10 Atherosclerotic heart disease of native coronary artery without angina pectoris; H40.9 Unspecified glaucoma; H35.30 Unspecified macular degeneration; R29.6 Repeated falls; I16.0 Hypertensive urgency; Z74.01 Bed confinement status; Z79.899 Other long term (current) drug therapy; Z79.82 Long term (current) use of aspirin; Z95.0 Presence of cardiac pacemaker; R13.12 Dysphagia, oropharyngeal phase
CPT/HCPCS: 36415; 51701; 70450; 71045; 72170; 76770; 80048; 80053; 81003; 81015; 82553; 82728; 83605; 83735; 83880; 84443; 84484; 85025; 86140; 87040; 87086; 87635; 93005; 94760; 96361; 96365; 96367; 96375; 96376; J0360; J0456; J0692; J0696; J2060; J2270; J2405; J3480; J3490; J7030; J7050; S0028; U0003

== ENCOUNTER 2020-01-20 15:09 | Inpatient (IN) | payer MEDICARE, OTHER ==
[2020-01-20] MEDS ORDERED: Haloperidol Lactate 5 MG/ML VIAL SLOW IVP PRN ×2 (15:46→20:05)
[2020-01-20] MEDS ORDERED: Acetaminophen 325 MG TAB PO PRN ×2 (15:46→20:04)
[2020-01-20] MEDS ORDERED: Morphine 10 MG/0.5 ML ORAL SYRINGE SL PRN (15:46)
[2020-01-20] MEDS ORDERED: Morphine IR Tab 15 MG TAB PO PRN ×2 (15:46→20:04)
[2020-01-20] MEDS ORDERED: Lorazepam 2 MG/ML VIAL SLOW IVP PRN ×4 (15:46→20:06)
[2020-01-20] MEDS ORDERED: Acetaminophen 650 MG Suppository PR PRN ×2 (15:46→20:04)
[2020-01-20] MEDS ORDERED: Scopolamine 1.5 mg/72 hour Patch TOP PRN ×2 (15:46→20:05)
[2020-01-20] MEDS ORDERED: Ondansetron PF 4 MG/2 ML Vial IVP PRN ×2 (15:46→20:05)
[2020-01-20] MEDS ORDERED: Loperamide HCl 2 MG CAP PO PRN ×2 (15:46→20:06)
[2020-01-20] MEDS ORDERED: Milk Of Magnesia 30 ML UDCUP PO PRN ×2 (15:46→20:06)
[2020-01-20] MEDS ORDERED: Ondansetron ODT 4 MG TAB PO PRN ×2 (15:46→20:05)
[2020-01-20] MEDS ORDERED: Lorazepam 1 MG TAB PO PRN ×4 (15:46→20:05)
[2020-01-20] MEDS ORDERED: Lorazepam 2 MG/ML VIAL SLOW IVP SCH (17:00)
[2020-01-20] MEDS ORDERED: Morphine 10 MG/0.5 ML ORAL SYRINGE SL SCH (17:00)
[2020-01-20] MEDS ORDERED: Senokot S 8.6-50 MG TAB PO SCH (21:00)
[2020-01-20] MEDS: Morphine 10 MG/0.5 ML ORAL SYRINGE SL SCH (21:14)
[2020-01-20] MEDS: Lorazepam 2 MG/ML VIAL SLOW IVP SCH (21:14)
[2020-01-20] MEDS: Senokot S 8.6-50 MG TAB PO SCH (21:16)
[2020-01-20 21:50] VITALS: BMI 18.0
[2020-01-21] MEDS: Morphine 10 MG/0.5 ML ORAL SYRINGE SL SCH ×7 (01:02→20:28)
[2020-01-21] MEDS: Lorazepam 2 MG/ML VIAL SLOW IVP SCH ×7 (01:04→20:28)
[2020-01-21 07:46] VITALS: BP 141/99; TEMP 98.9
[2020-01-21] MEDS: Morphine 10 MG/0.5 ML ORAL SYRINGE SL PRN ×2 (08:08→11:39)
[2020-01-21] MEDS: Senokot S 8.6-50 MG TAB PO SCH ×2 (08:19→20:28)
[2020-01-21] MEDS ORDERED: Scopolamine 1.5 mg/72 hour Patch TOP SCH (16:00)
== END 2020-01-21 18:32 | disposition expired | DRG 951 ==
LOC: 2SE 15:09 → T4-A 18:13 → UNDODISIN 18:32
PROVIDERS: ADMIT Internal Medicine; ATTEND Internal Medicine
DX: Z51.5 Encounter for palliative care (principal); J18.9 Pneumonia, unspecified organism; N17.9 Acute kidney failure, unspecified; G30.9 Alzheimer's disease, unspecified; H35.30 Unspecified macular degeneration; Z66 Do not resuscitate; F02.80 Dementia in other diseases classified elsewhere, unspecified severity, without behavioral disturbance, psychotic disturbance, mood disturbance, and anxiety; I25.10 Atherosclerotic heart disease of native coronary artery without angina pectoris; R29.6 Repeated falls; I12.9 Hypertensive chronic kidney disease with stage 1 through stage 4 chronic kidney disease, or unspecified chronic kidney disease; N18.3 Chronic kidney disease, stage 3 (moderate); Z95.0 Presence of cardiac pacemaker
CPT/HCPCS: J2060